=== PATIENT | male | born 1985 | race Caucasian/White ===

== ENCOUNTER → 2017-03-08 | Day surgery (SDC) | payer OTHER ==
[2017-02-23 11:49] VITALS: Ht 175.3 cm; Wt 79.5 kg
[~2017-03-08] VITALS: Ht 175.3 cm; Wt 79.5 kg
[~2017-03-08] MED LIST: APPL188C PO; ASTIN/15 NAE; ATROPINE SULFATE 0.1 MG/ML 5ML SYR IV PRN; BUPIVACAINE/EPINEPHRINE 0.25% 1:200,000 30 ML VIAL ONE; CEFAZOLIN 2000MG IV PUSH 10 ML IV SCH; CETITAB27 PO; DEXAMETHASONE SOD INJ 4 MG/ML VIAL ONE; EpHEDrine SULFATE INJ 50 MG/ML AMP IV PRN; EpINEphrine INJ 1MG/ML AMP 1 MG/ML AMP ONE; FENTANYL CITRATE INJ 50 MCG/1 ML 2 ML VIAL ONE; FLUT0.15 NAE; IBUP-1050 PO; KETO10TA PO; LACTATED RINGER'S 1000ML 1,000 ML IV SCH; LACTATED RINGER'S 1000ML 500 ML IV SCH; LIDOCAINE HCL 1% MPF 2 ML VIAL ONE; LIDOCAINE HCL 2% 2 ML VIAL (20MG/ML) ONE; MIDAZOLAM HCL 1 MG/ML 2ML VIAL ONE; MONT1TAB3 PO; MULT-506 PO; ONDANSETRON INJ 2 MG/ML 2 ML VIAL IV PRN; ONDANSETRON INJ 2 MG/ML 2 ML VIAL ONE; OXYC-57 PO; OXYCODONE/ACETAMINOPHEN 5-325 TAB PO PRN; PROPOFOL IV EMULSION 10 MG/ML 20 ML VIAL IV ONE; ROPIVACAINE 0.5% 5 MG/ML 30 ML VIAL ONE; SODIUM CHLORIDE 0.9% 1000ML 1,000 ML IV SCH
--- NOTE | 2017-03-08 10:13 | History & Physical Bridge - [place] ---
H&P Re-Evaluation Bridge Note: I have examined the patient, reviewed the History & Physical and in the interval since the performance of the History & Physical I have noted the following changes of clinical significance: No changes noted
--- NOTE | 2017-03-08 12:56 | [facility] Post Operative Brief Note ---
Immediate Operative Summary Operative Date Mar 08, 2017. Pre-Operative Diagnosis Right Shoulder Acromioclavicular Joint Arthritis Post-Operative Diagnosis Same Procedure(s) Performed Right Shoulder Arthroscopic Distal Clavicle Resection Surgeon Dr. Leal Bottle Tester Surgeon(s) Krystal Ledezma PA-C Estimated Blood Loss 5cc Findings as above Specimens None Complication(s) None Disposition Recovery Room / PACU
--- NOTE | 2017-03-08 13:02 | Discharge Instructions-SurgCtr ---
Discharge Instructions Date of Service Mar 08, 2017. Visit Reason for Visit: Right Shoulder Arthritis Acromioclavicular Jt Discharge Discharge Diagnosis / Problem: SAME ABOVE Discharge Goals Goal(s): Decrease discomfort, Improve function Medications Stopped Medications Name(s): all meds including ibuprofen stopped x 1 week. Restart Stopped Medication(s): MAY RESTART ALL EXCEPT IBUPROFEN MAY RESTART IBUPROFEN WHEN FINISHED WITH TORADOL PLEASE TAKE EVERY 8 HOURS WITH FOOD Activity Recommendations Activity Limitations: as noted below Lifting Limitations: gradually increase as tolerated Shower/Bathe: tomorrow Anesthesia . Post Anesthesia Instructions: If you have had General Anesthesia or IV Sedation: * Do not drive today. * Resume driving when surgeon permits. * Do not make important decisions or sign legal documents today. * Call surgeon for: 1. Temperature elevations greater than 101 degrees F. 2. Uncontrollable pain. 3. Excessive bleeding. 4. Persistent nausea and vomiting. 5. Medication intolerance (nausea, vomiting or rash). * For nausea and vomiting use only clear liquids such as: tea, soda, bouillon until nausea subsides, then gradually increase diet as tolerated. * If you have any concerns or questions, call your surgeon's office. If physician is unavailable and it is an emergency, call 911 or go to the nearest emergency room. . Instructions / Follow-Up Instructions / Follow-Up MEDICATIONS: * Resume previous medications unless instructed otherwise by your surgeon. * Always take pain medication on a full stomach or with food to avoid upset stomach. * Do not drink alcohol or drive while taking narcotics. * Ibuprofen or Tylenol may be taken if narcotic not needed. SPECIAL CARE INSTRUCTIONS: __ None _X_ Keep extremity elevated and iced x 48 hours; apply ice 20-30 minutes 8-10 times/day. May remove at night. _X Sling (WEAR FOR COMFORT ONLY) __24 hrs/day __ Remove at night __ Shoulder Immobilizer __ 24 hrs/day __ Remove at night _X_ Dressing __ Maintain until seen in office, may shower with plastic over site _X_ Remove dressings in 24-48 hours and then may shower _X_ Cover incisions with band-aids after showering __ Do not remove steri-strips Call physician if chills or temperature rises above 102 degrees or pain unrelieved by prescribed pain medications at . . Diet Recommendations Home Diet: no limitations Fluid Restriction: None Procedures Procedures Performed: Right Shoulder Arthroscopic Distal Clavicle Resection Pending Studies Studies pending at discharge: no Work Instructions Return To Work: after follow-up Lifting Limitations: none Medical Emergencies . Who to Call and When: Medical Emergencies: If at any time you feel your situation is an emergency, please call 911 immediately. . Non-Emergent Contact Non-Emergency issues call your: Primary Care Provider Call Non-Emergent contact if: you have a fever, temperature is above 101.5 . . "Provider Documentation" section prepared by Wale Ledezma. .
[2017-03-08] MEDS: HYDROmorphone INJ 1 MG/ML SYR IV PRN ×2 (13:20→13:28)
--- NOTE | 2017-03-08 13:57 | OPERATIVE REPORT ---
DATE OF OPERATION: 03/08/2017 PREOPERATIVE DIAGNOSES: Acromioclavicular joint arthritis and external impingement of the right shoulder. POSTOPERATIVE DIAGNOSES: Same. PROCEDURE: Right shoulder diagnostic arthroscopy with limited debridement, acromioplasty, and distal clavicle resection. SURGEON: Dr. Adair Leal. HIGH LIFT DRIVER: Iain Ledezma PA-C, whose assistance was necessary for positioning the arm and helping with instrumentation. ANESTHESIA: General with a right interscalene nerve block. COMPLICATIONS: None. CONDITION: Stable to PACU. 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 X-rays and clinical examination were diagnostic for bursitis, external impingement and AC joint arthritis. After failing conservative treatment, he elected to undergo arthroscopy. DESCRIPTION OF PROCEDURE: On 03/08/2017, he arrived at [facility] for the above procedure. He was seen in the preoperative holding area and the operative extremity was identified and signed. He was given a preoperative antibiotic and a right interscalene nerve block. He was taken back to the operating room, laid on the table in supine position and put under general anesthesia. He was then put into the beachchair position. The right shoulder was prepped and draped in sterile fashion. Time-out was done and the patient and operative extremity was properly identified. A scope was introduced in the posterior portal. Diagnostic arthroscopy showed no cartilage damage to the humeral head or the glenoid. There was a little fraying of the anterior labrum. The biceps tendon was intact with a normal size biceps lynn mechanism. The supraspinatus, infraspinatus, teres minor and subscapularis were all checked and intact. An anterior portal was made. A shaver was used to do a limited debridement of the anterior labrum. The scope was then put into the subacromial space. A lateral portal was made. A shaver was used to do a complete subacromial and subdeltoid bursectomy. The bursa was very red and inflamed. The coracoacromial ligament was teased off the undersurface of the acromion and a 5-0 elisha was used to complete an acromioplasty of a Bigliani type 2 acromion. A shaver was used to remove any excess debris and attention was turned to the distal clavicle. Through an anterior portal, a shaver and ablator were used to skeletonize the distal clavicle. A 5-0 elisha was then used to resect the distal 5 mm from the clavicle. Complete resection was checked under direct visualization. Multiple pictures were taken. A shaver was used to remove any excess debris. Final diagnostic arthroscopy showed no additional pathology. Arthroscopic instruments were removed from the shoulder. Portal sites were closed with 3-0 nylon. He was then placed in a soft dressing and a regular arm sling. He was then extubated, transferred to a litter and taken to the postanesthesia care unit in stable condition. He tolerated the procedure well. I attest to the content of the Intraoperative Record and any orders documented therein. Any exception s are noted below.
--- NOTE | 2017-03-08 14:15 | Anesthesia Progress Nt - [facility] ---
Anesthesia Post Op Note Date & Time Mar 08, 2017 at 14:15 Vital Signs Pain Intensity: 1 Vital Signs Past 12 Hours Date Time Temp Pulse Resp B/P (MAP) Pulse Ox O2 Delivery O2 Flow Rate FiO2 03/08/17 13:46 141/86 03/08/17 13:45 81 14 98 03/08/17 13:45 81 14 03/08/17 13:44 80 16 98 03/08/17 13:44 80 16 03/08/17 13:42 36.5 81 12 131/86 99 Room Air 03/08/17 13:41 131/86 03/08/17 13:39 87 13 97 03/08/17 13:39 86 13 03/08/17 13:36 144/90 03/08/17 13:34 90 17 97 03/08/17 13:34 90 17 03/08/17 13:33 88 12 99 03/08/17 13:33 85 12 03/08/17 13:31 152/97 03/08/17 13:28 78 8 100 03/08/17 13:28 77 8 03/08/17 13:26 142/85 03/08/17 13:23 72 12 03/08/17 13:23 72 12 100 03/08/17 13:22 83 16 03/08/17 13:22 83 16 100 03/08/17 13:21 119/75 03/08/17 13:17 78 15 100 03/08/17 13:17 79 15 03/08/17 13:16 123/78 03/08/17 13:12 75 14 03/08/17 13:12 76 14 100 03/08/17 13:11 136/74 03/08/17 13:07 83 16 100 03/08/17 13:07 82 16 03/08/17 13:06 131/79 03/08/17 13:03 135/87 03/08/17 13:02 36.6 86 16 135/87 100 Diffusion Mask 6 03/08/17 12:03 0 03/08/17 12:01 125/78 03/08/17 11:58 63 16 100 03/08/17 11:58 64 03/08/17 11:56 122/82 03/08/17 11:53 72 9 100 03/08/17 11:53 67 03/08/17 11:51 124/80 03/08/17 11:48 78 15 100 03/08/17 11:48 78 03/08/17 11:46 123/87 03/08/17 11:43 80 21 100 03/08/17 11:43 78 03/08/17 11:42 121/76 03/08/17 11:38 81 03/08/17 11:38 80 23 100 03/08/17 11:33 93 19 100 03/08/17 11:33 92 03/08/17 11:31 130/86 03/08/17 11:28 84 03/08/17 11:28 84 13 100 03/08/17 11:27 143/84 03/08/17 11:23 87 0 98 03/08/17 11:23 87 03/08/17 11:18 79 0 98 03/08/17 11:18 81 03/08/17 09:11 36.5 96 16 128/85 (99) 97 Room Air Notes Mental Status: alert / awake / arousable, participated in evaluation Pt Amnestic to Procedure: Yes Nausea / Vomiting: adequately controlled Pain: adequately controlled Airway Patency, RR, SpO2: stable & adequate BP & HR: stable & adequate Hydration State: stable & adequate Anesthetic Complications: no major complications apparent
[2017-03-08 14:34] VITALS: BP 116/69; PULSE 81; TEMP 36.4; O2SAT 99
== END | disposition home or self-care (01) ==
LOC: X.SURG 09:00
PROVIDERS: ATTEND Orthopaedic Surgery
DX: M19.011 Primary osteoarthritis, right shoulder (principal); M75.41 Impingement syndrome of right shoulder; K21.9 Gastro-esophageal reflux disease without esophagitis

== ENCOUNTER 2019-11-26 19:24 | Inpatient (IN) ==
[2019-11-26] MEDS ORDERED: MoRPHine SULFATE 4 MG/ML 1 ML CARP\\VIAL IV STA (19:49)
[2019-11-26] MEDS ORDERED: KETOROLAC TROMETHAMINE 15 MG/ML VIAL IV STA (19:51)
[2019-11-26 20:20] LABS: Basophils # (auto) 0.02 K/uL (0-0.2); Basophils % (auto) 0.3 %; Eosinophils # (auto) 0.09 K/uL (0-0.5); Eosinophils % (auto) 1.2 %; Hemoglobin 15.2 g/dL (14.0-18.0); Immature Granulocytes # (auto) 0.02 K/uL (0.00-0.02); Immature Granulocytes % (auto) 0.3 %; Lymphocytes # (auto) 2.18 K/uL (1.2-3.4); Lymphocytes % (auto) 28.5 %; Mean Corpuscular Hgb Conc 33.8 g/dL (32-36); Mean Corpuscular Volume 88.9 fL (80-100); Mean Platelet Volume 9.2 fL (7.4-10.4); Monocytes # (auto) 0.85 K/uL (0.11-0.59); Monocytes % (auto) 11.1 %; Neutrophils # (auto) 4.49 K/uL (1.4-6.5); Neutrophils % (auto) 58.6 %; Platelet Count 302 K/uL (130-400); RDW Coefficient of Variation 12.2 % (11.5-14.5); RDW Standard Deviation 39.3 fL (36.4-46.3); Red Blood Count 5.06 M/uL (4.7-6.1); White Blood Count 7.65 K/uL (4.8-10.8)
[2019-11-26 20:36] LABS: BUN Creatinine Ratio 17.4 (10-20); Blood Urea Nitrogen 19 mg/dl (7-18); Calcium 8.9 mg/dl (8.5-10.1); Carbon Dioxide 24 mmol/L (21-32); Chloride 109 mmol/L (98-107); Est GFR (African American) 99.6; Est GFR (Non-African American) 85.9; Glucose 99 mg/dl (70-99); Potassium 3.8 mmol/L (3.5-5.1); Sodium 140 mmol/L (136-145)
[2019-11-26] MEDS ORDERED: HYDROmorphone INJ 1 MG/ML SYRINGE IV STA ×2 (20:37→23:02)
--- NOTE | 2019-11-26 20:43 | Emergency Department Note ---
Impression & Plan Lumbar radiculopathy, Sciatica, Back pain ED Provider Note Provider: Sebastien Cabezas MD DATE OF SERVICE: 11/26/2019 CHIEF COMPLAINT: Back pain HISTORY OF PRESENT ILLNESS: Patient is a 34-year-old gentleman presenting here today complaining of severe lower back pain rating down the right leg. Patient states he had recent exacerbation of the past several weeks. Seen here several days ago. Utilize home medication including additional received from his primary doctor without improvement. Patient's pain is about it is weak and had to go to the ground. Unable to walk due to pain particular in his right leg. Denies abdominal pain or fever. Denies any significant trauma. Denies bladder or bowel dysfunction or saddle anesthesia. No prior history of back surgery. Patient has previously seen by neurosurgery at [facility] sometime ago. Has been seeing pain management recently in the outpatient setting with injection several weeks ago without significant improvement of symptoms. REVIEW OF SYSTEMS: A total of 10 review of systems was obtained and negative except as stated above in the HPI. PAST MEDICAL HISTORY: As noted above MEDICATIONS: Reviewed home medications with the patient and his SOCIAL HISTORY: Lives at home with his and children PHYSICAL EXAM: GENERAL: alert and oriented on stretcher appears uncomfortable Head: normocephalic and atraumatic EYES: No injection, discharge or icterus. ENT: Mucous membranes pink and moist. LUNGS: Airway patent. No retractions. Breath sounds clear HEART: Regular rate and rhythm. No chest wall tenderness ABDOMEN: Soft and non-tender, without guarding or rebound. BACK: Mild diffuse lumbar tenderness particularly of the right SI joint. SKIN: Acyanotic, warm, dry, without rashes EXTREMITIES: Without swelling, tenderness or deformity except pain with range of motion of the right lower extremity. No calf tenderness. NEUROLOGICAL: No focal deficits. No aphasia. No facial droop or slurred speech. Sensation to gross touch normal. Pain limits the ability to move the right lower extremity. Patient's hypertension was referred to the hospitalist HOSPITAL COURSE: 1938 Patient was first seen and H&P performed. 2034 reassessed the patient is still having significant pain. 2254 Patient reassessed and updated. Patient was still in some pain. Will contact the hospitalist. Patient's laboratory studies and imaging reviewed. Differential includes Musculoskeletal, disc herniation, fracture, metastatic disease, cord compression, discitis, sciatica, cauda equina, infection, aortic disease, renal colic, gastrointestinal, as well as other pathologies. IMPRESSION/MEDICAL DECISION MAKING: Patient presents with known back issues worsening now making it impossible for him to walk. On multiple medications at home including gabapentin and oxycodone as well as [id number]'s. Treated here with IV pain medication. Given the weakness likely secondary to significant pain in the right lower extremity MRI of the lumbar spine was completed. Disc disease noted without acute fracture or signs of cauda equina. I doubt an acute infectious cause given his lack of fevers or leukocytosis. Denies any loss of bladder or bowel function. Patient states given the need for pain medicine he does not feel comfortable going home. Will discuss with the hospitalist. DIAGNOSIS: Intractable back pain, sciatic radiculopathy DISPOSITION: Hospitalist will evaluate Patient was agreeable with this plan. Preliminary Findings Only See Final Report For Complete Findings MRI L SPINE : No acute fracture. Straightening of the normal lumbar lordosis with degenerative changes most pronounced at L4-5 and L5-S1. L4-5: Diffuse disc bulge with annular fissuring. Mild canal stenosis. Mild bilateral foraminal stenosis. L5-S1: Diffuse disc bulge causing moderate right and mild left foraminal stenosis. Potential herniated disc material inferior to the disc space medial to the exiting right S1 nerve root (image [id number]). This is the lowest slice and as such it is hard to say with certainty what this represents. There is mass-effect on the exiting nerve root. No epidural fluid collection. Normal appearance of the cord and cauda equina. Radiologist: Jan Arreaga MD Study ready at 22:34 and initial results transmitted at 22:45 Past Med/Surg History Medical History (Updated 11/26/19 @ 20:43 by Sebastien Cabezas M.D.) Chronic back pain Surgical History (Updated 11/25/19 @ 01:10 by Gracie Bell PA-C) No pertinent past surgical history Social History Smoking Status: Never smoker Preferred Language: Martiniquais Feels Safe at Home: Yes Allergies Allergies Allergy/AdvReac Type Severity Reaction Status Date / Time No Known Allergies Allergy Verified 11/26/19 22:48 Home Meds Home Medications Medication Instructions Recorded Confirmed cetirizine-pseudoephedrine 1 tab PO Q12H #0 02/23/17 11/06/19 [Zyrtec-D] fluticasone propionate [Flonase 1 spray INTRANASAL BID #0 02/23/17 11/06/19 Allergy Relief] ibuprofen 400 - 600 mg PO QID PRN #0 02/23/17 11/06/19 montelukast 10 mg PO QPM #0 02/23/17 11/06/19 multivitamin 1 tab PO DAILY #0 02/23/17 11/06/19 apple cider vinegar 300 mg PO BID 05/31/18 11/06/19 azelastine 1 spray INTRANASAL BID 11/06/19 11/06/19 cyclobenzaprine 10 mg PO TID PRN 11/06/19 11/06/19 Results & Data (ED) Vital Signs Vital Signs - 24 hr 11/26/19 19:27 11/26/19 20:43 11/26/19 22:36 Temperature 36.8 C Temperature Source Oral Pulse Rate 83 Pulse Rate [Left Finger] 80 80 Respiratory Rate 18 16 19 Respiratory Effort / Characteristics Non-Labored Non-Labored Spontaneous Respiratory Depth Normal Normal Blood Pressure 150/66 H Blood Pressure [Right Arm] 167/95 H 165/91 H Blood Pressure Mean 94 Blood Pressure Mean [Right Arm] 119 115 Pulse Oximetry 96 96 99 Oxygen Delivery Method Room Air Room Air Room Air Sepsis Recent Fever Within 48 Hours No Sepsis New/Unexplained Change in Mental Status No Sepsis Action Taken by Nursing No Action Required Laboratory Data Result diagrams: 11/26/19 20:07 11/26/19 20:07 Lab Results 11/26/19 11/26/19 Range/Units 20:07 20:07 WBC 7.65 (4.8-10.8) K/uL RBC 5.06 (4.7-6.1) M/uL Hgb 15.2 (14.0-18.0) g/dL Hct 45.0 (42-52) % MCV 88.9 (80-100) fL MCH 30.0 (25-34) pg MCHC 33.8 (32-36) g/dL RDW Std Deviation 39.3 (36.4-46.3) fL RDW Coeff of Get 12.2 (11.5-14.5) % Plt Count 302 (130-400) K/uL MPV 9.2 (7.4-10.4) fL Immature Gran % (Auto) 0.3 % Neut % (Auto) 58.6 % Lymph % (Auto) 28.5 % [place] % (Auto) 11.1 % Eos % (Auto) 1.2 % Baso % (Auto) 0.3 % Neut # (Auto) 4.49 (1.4-6.5) K/uL Lymph # (Auto) 2.18 (1.2-3.4) K/uL [place] # (Auto) 0.85 H (0.11-0.59) K/uL Eos # (Auto) 0.09 (0-0.5) K/uL Baso # (Auto) 0.02 (0-0.2) K/uL Immature Gran # (Auto) 0.02 (0.00-0.02) K/uL Sodium 140 (136-145) mmol/L Potassium 3.8 (3.5-5.1) mmol/L Chloride 109 H (98-107) mmol/L Carbon Dioxide 24 (21-32) mmol/L Anion Gap 7.0 (3-11) BUN 19 H (7-18) mg/dl Creatinine 1.10 (0.6-1.4) mg/dl Est Cr Clr Drug Dosing Not Reportable Est GFR ( Amer) 99.6 Est GFR (Non-Af Amer) 85.9 BUN/Creatinine Ratio 17.4 (10-20) Glucose 99 (70-99) mg/dl Calcium 8.9 (8.5-10.1) mg/dl Administered Medications Discontinued Medications Hydromorphone HCl (Hydromorphone Inj 1 Mg/Ml Syringe) 1 mg IV NOW STA Stop: 11/26/19 20:38 Last Admin: 11/26/19 20:40 Dose: 1 mg Documented by: [id number] Ketorolac Tromethamine (Ketorolac Tromethamine 15 Mg/Ml Vial) 15 mg IV NOW STA Stop: 11/26/19 19:52 Last Admin: 11/26/19 20:04 Dose: 15 mg Documented by: [id number] Morphine Sulfate (Morphine Sulfate 4 Mg/Ml 1 Ml Carp\Vial) 4 mg IV NOW STA Stop: 11/26/19 19:50 Last Admin: 11/26/19 20:05 Dose: 4 mg Documented by: [id number] Discharge Plan Visit Data Chief Complaint: Back Injury/Pain Stated Complaint: back pain ED Provider: Sebastien Cabezas Discharge Problem: Lumbar radiculopathy, Sciatica, Back pain Patient Disposition: Being Evaluated by Hospitalist Forms Stand Alone Forms: [facility] [place] Prescriptions Prescriptions: No Action multivitamin Tablet 1 tab PO DAILY Qty: 0 RF: 0 cetirizine-pseudoephedrine [Zyrtec-D] 5-120 mg Tablet Extended Release 12 Hr 1 tab PO Q12H Qty: 0 RF: 0 ibuprofen 200 mg Tablet 400 - 600 mg PO QID PRN (Reason: Pain) Qty: 0 RF: 0 montelukast 10 mg Tablet 10 mg PO QPM Qty: 0 RF: 0 fluticasone propionate [Flonase Allergy Relief] 50 mcg/actuation [place],Suspension 1 spray INTRANASAL BID Qty: 0 RF: 0 apple cider vinegar 300 mg Tablet 300 mg PO BID RF: 0 azelastine 137 mcg (0.1 %) aerosol,spray 1 spray INTRANASAL BID RF: 0 Referrals Referrals: Carlos Polo MD [Primary Care Provider] - Discharge Problem: Sciatica Qualifiers: Laterality: right Qualified Code(s): M54.31 - Sciatica, right side Back pain Qualifiers: Back pain location: low back pain Chronicity: acute Back pain laterality: right Sciatica presence: with sciatica Sciatica laterality: sciatica of right side Qualified Code(s): M54.41 - Lumbago with sciatica, right side
[2019-11-27] MEDS ORDERED: DEXAMETHASONE SOD INJ 10 MG/ML VIAL IV STA (01:55)
[2019-11-27] MEDS ORDERED: HYDROmorphone INJ 0.5 MG/0.5 ML SYR IV PRN (01:55)
[2019-11-27] MEDS ORDERED: ONDANSETRON INJ 2 MG/ML 2 ML VIAL IV PRN (01:55)
[2019-11-27] MEDS ORDERED: POLYETHYLENE (MIRALAX) 17 GM PACK PO PRN (01:55)
[2019-11-27] MEDS ORDERED: DEXAMETHASONE SOD PHOSPHATE 10 MG in SYRINGE 0 ML IV ONE (02:30)
--- NOTE | 2019-11-27 02:38 | History and Physical Report ---
DATE OF ADMISSION: 11/27/2019 CHIEF COMPLAINT: Severe back pain. HISTORY OF PRESENT ILLNESS: This is a 34-year-old male with past medical history significant for seasonal allergic rhinitis, mixed rhinitis, degenerative disc disease, chronic low back pain, cystic fibrosis carrier, who comes with severe back pain. The patient says he has back pain for last 10 years. A couple of weeks ago, he saw Pain Management and was given the pain shots, which made the pain worse and he was in the ER on 11/06/2019 and he was given Toradol, Decadron, and morphine. His symptoms improved and was discharged.But yesterday in the evening he again had severe pain, he could not ambulate because of severe pain and the pain was shooting from the right lower back to the right leg and he could not move the right leg because of the pain. Denies any incontinence of urine or stool. No loss of sensations. Denies any other fever, chills. Still has significant pain. Received several doses of Dilaudid in the ER. MRI scan was done, it showed probable disc bulge, potentially herniated disc medial to the exiting right S1 nerve root. No epidural fluid collection. Normal appearance of the cord and cauda equina. The patient denies any chest pain, no shortness of breath, no nausea, no abdominal pain. Normal bowel and bladder movements. No rash seen. No headache, no blurred vision, no earache, no runny nose, no sore throat, no cough. ALLERGIES: No known drug allergies. PAST MEDICAL HISTORY: As mentioned above. PAST SURGICAL HISTORY: Arthroscopy of right knee joint, repair of the deviated septum, injection of lumbosacral joints, removal of turbinate bones bilateral, sinus surgery. MEDICATIONS: The patient is on gabapentin 300 mg p.o. t.i.d., tramadol 50 mg p.o. p.r.n., Flexeril 10 mg p.o. t.i.d., Flonase 2 sprays into each nostril b.i.d., Singulair 10 mg p.o. daily, apple cider vinegar 300 mg b.i.d., [employer] nasal spray 2 sprays into each nostril daily p.r.n. FAMILY HISTORY: Significant for maternal grandfather with diabetes, father has hyperlipidemia, paternal grandfather has hyperlipidemia. SOCIAL HISTORY: , lives with his and kids. No smoking. Alcohol, a couple of beers a week. No drug use. REVIEW OF SYSTEMS: As per HPI. Rest of the review of systems negative. PHYSICAL EXAMINATION: GENERAL: The patient is of moderate build, not in acute distress. VITAL SIGNS: Temperature 36.8, pulse 71, respiratory rate 20, blood pressure 148/93, oxygen 99% on room air. HEENT: Pupils equal, round, reactive to light. NECK: No JVD, no neck masses. CARDIOVASCULAR: S1, S2 heard, regular rate and rhythm, no murmur, no gallop. RESPIRATORY SYSTEM: Normal AP diameter. No accessory muscle use. No wheezing, no crackles. ABDOMEN: Soft, bowel sounds present, nontender. No distention. CENTRAL NERVOUS SYSTEM: Cranial nerves II-XII grossly intact. Nonfocal. EXTREMITIES: No edema, no erythema. MUSCULOSKELETAL: Straight leg raise test positive on the right leg. painful movements of the right leg.No loss of sensation. LABORATORY DATA: WBC 7.6, hemoglobin 15.2, hematocrit 45, platelets 302. Sodium 140, potassium 3.8, chloride 109, bicarbonate 24, BUN 19, creatinine 1.1, serum glucose 99, calcium 8.9. IMAGING DATA: Lumbar spine MRI preliminary report shows L5-S1 diffuse disc bulge causing moderate right and mid left foraminal stenosis, potential herniated disc material inferior to disc space medial to the exiting right S1 nerve root.Possible mass effect on nerve root. No epidural fluid collection. Normal appearance of the cord and cauda equina. ASSESSMENT AND PLAN: This is a 34-year-old male with severe back pain. 1. Severe intractable back pain. He has chronic back pain. Received shots by the Pain Management, not helping. Yesterday night, he had a flare-up again. MRI scan is showing normal cord and cauda equina, but showing moderate disc bulge causing moderate right and mild left foraminal stenosis at the L5-S1 and potential herniated disc material inferior to disc space medial to the exiting right S1 nerve root and possible mass effect . Will follow final MRI report. We will give a dose of Decadron and control the pain with IV Dilaudid p.r.n. We will keep him n.p.o. and consult ortho in a.m. for further recommendations. PT and OT when stable. Notified Ortho. 2. Allergic rhinitis. Continue his home medication. 3. Deep venous thrombosis prophylaxis, sequential compression devices for now. DISPOSITION: Observe in medical floor. Expect to discharge home and follow with family doctor. Level 1 full code. MTDD
[2019-11-27] MEDS: HYDROmorphone INJ 1 MG/ML SYRINGE IV PRN ×7 (04:20→23:46)
[2019-11-27 07:14] LABS: Basophils # (auto) 0.01 K/uL (0-0.2); Basophils % (auto) 0.1 %; Eosinophils # (auto) 0.01 K/uL (0-0.5); Eosinophils % (auto) 0.1 %; Hematocrit (blood only) 44.4 % (42-52); Hemoglobin 15.4 g/dL (14.0-18.0); Lymphocytes # (auto) 0.71 K/uL (1.2-3.4); Lymphocytes % (auto) 7.8 %; Mean Corpuscular Hemoglobin 30.6 pg (25-34); Mean Corpuscular Hgb Conc 34.7 g/dL (32-36); Mean Corpuscular Volume 88.1 fL (80-100); Mean Platelet Volume 9.2 fL (7.4-10.4); Monocytes # (auto) 0.08 K/uL (0.11-0.59); Monocytes % (auto) 0.9 %; Neutrophils # (auto) 8.34 K/uL (1.4-6.5); Neutrophils % (auto) 91.1 %; Platelet Count 255 K/uL (130-400); RDW Coefficient of Variation 12.1 % (11.5-14.5); RDW Standard Deviation 38.5 fL (36.4-46.3); Red Blood Count 5.04 M/uL (4.7-6.1); White Blood Count 9.15 K/uL (4.8-10.8)
[2019-11-27 07:38] LABS: BUN Creatinine Ratio 20.7 (10-20); Calcium 9.1 mg/dl (8.5-10.1); Creatinine Clr Calc Pharmacy 104.2 ml/min; Est GFR (African American) 114.5; Est GFR (Non-African American) 98.8; Magnesium 2.2 mg/dl (1.8-2.4)
[2019-11-27] MEDS: FLUTICASONE PROPIONATE NA SPR 16 GM BTL SCH ×2 (07:45→20:51)
[2019-11-27] MEDS: MULTIVITAMIN TAB PO SCH (07:45)
--- NOTE | 2019-11-27 08:29 | Magnetic Resonance Report ---
MRI OF THE LUMBAR SPINE WITHOUT CONTRAST CLINICAL HISTORY: back pain down RLE, weakness COMPARISON STUDY: Lumbar spine radiographs May 31, 2018. TECHNIQUE: Utilizing a 1.5 Jeannette magnet and dedicated coil, multiplanar, multiecho imaging of the [facility] spine was performed without IV contrast. FINDINGS: For purposes of numbering on this exam, the L5-S1 disc space is assigned to axial image 23 of 25. Ali gnment is anatomic. Vertebral body heights are maintained. There is no suspicious marrow replacement. Hemangioma within the L5 vertebral bodies is noted. The conus terminates at the upper L2 level. Para vertebral soft tissues are unremarkable. L1-2: The central canal and neural foramen are patent. L2-3: The central canal and neural foramen are patent. L3-4: The central canal and neural foramen are patent. L4-5: There is mild disc bulge with ligamentous hypertrophy and facet arthrosis. There is mild centra l canal stenosis. There is mild bilateral neural foraminal stenosis. L5-S1: There is mild disc bulge. There is a superimposed right paracentral disc protrusion that measu res approximately 1 x 0.8 cm. This has mass effect upon the right S1 nerve root. There is moderate na rrowing of the right neural foramen and mild narrowing of the left neural foramen. There is mild cent ral canal narrowing. IMPRESSION: 1. Disc bulge with superimposed right central disc protrusion at L5-S1 that has mass effect upon the right S1 nerve root. Findings could be correlated with right S1 radiculopathy. 2. Mild disc bulge at L4-L5. Mild narrowing of the central canal this level. 3. No lumbar spine fracture. ACT 112: Negative or not required by law. Electronically signed by: Delon Gomes M.D. 11/27/2019 8:28 AM
--- NOTE | 2019-11-27 08:34 | Orthopedic Consultation ---
Date of Consultation November 27, 2019 Assessment & Plan (1) Lumbar radiculopathy: This time the patient is evidence of a herniated free fragment at L5-S1 on the right with caudal migration. It is sitting in the axillary region of the nerve roots. The significant displacement of the tickly S1 nerve root. This is clearly accounting for symptom complex. He is failed extensive course of nonoperative care is any significant distress with neurologic client and recommending lumbar laminotomy with discectomy at L5-S1 the right. Risk benefits pros cons and alternatives were outlined in detail. At this time we will make him n.p.o. after midnight plan for surgery tomorrow. 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 He presents with worsening back and right leg pain. Yesterday got the point he was unable to ambulate and required assistance to his vehicle and to the ER. He has been in the ER twice this week secondary to pain. He has had 1 epidural injection providing little to no relief. The symptoms of all the right buttock posterior thigh extending in the calf and heel. He notes weakness affecting the right lower extremity as well as limitations with ambulation. Allergies Allergy/AdvReac Type Severity Reaction Status Date / Time No Known Allergies Allergy Verified 11/26/19 22:48 Home Medications Home Medications Medication Instructions Recorded Confirmed Type cetirizine-pseudoephedrine 1 tab PO Q12H #0 02/23/17 11/26/19 History [Zyrtec-D] fluticasone propionate [Flonase 1 spray INTRANASAL BID #0 02/23/17 11/26/19 History Allergy Relief] ibuprofen 400 - 600 mg PO QID PRN #0 02/23/17 11/26/19 History montelukast 10 mg PO QPM #0 02/23/17 11/26/19 History multivitamin 1 tab PO DAILY #0 02/23/17 11/26/19 History apple cider vinegar 300 mg PO BID 05/31/18 11/26/19 History azelastine 1 spray INTRANASAL BID 11/06/19 11/26/19 History Patient History Medical History (Updated 11/26/19 @ 20:43 by Sebastien Cabezas M.D.) Chronic back pain Surgical History (Updated 11/25/19 @ 01:10 by Gracie Bell PA-C) No pertinent past surgical history Social History Smoking Status: Never smoker Second Hand Exposure: No; Do You Dip or Chew Tobacco: No; Tobacco Cessation Education Requested by Patient: No Hx Alcohol Use: Yes Alcohol type: beer Hx Substance Use: No Preferred Language: [place] Islander Communication Ability: Effective Call Center Support Consultant Required: No Beliefs That Will Affect Care: None Current Living Situation: Spouse Other Information That Helps Us Care for You: No Feels Safe at Home: Yes Safety Concerns: Feels Safe At This Time Physical Exam Physical Exam: Patient is obvious distress. He demonstrates significant tension signs with straight leg raising on the right as well as a positive Lasegue's maneuver. He has weakness with plantar flexion on the right. He is a 5 or 5 strength detailed testing on the left. Results & Data ([facility]) Vital Signs (Past 12 Hours) Vital Signs Temp Pulse Pulse Pulse Resp BP BP 11/27/19 07:22 36.6 C 95 H 17 147/94 H 11/27/19 03:38 63 11/27/19 01:45 36.5 C 68 19 162/99 H 11/27/19 01:36 70 18 149/84 H 11/27/19 00:00 71 20 11/26/19 22:36 80 19 11/26/19 20:43 80 16 BP Pulse Ox Pulse Ox 11/27/19 07:22 96 11/27/19 03:38 138/81 11/27/19 01:45 98 98 11/27/19 01:36 99 11/27/19 00:00 148/93 H 99 11/26/19 22:36 165/91 H 99 11/26/19 20:43 167/95 H 96
[2019-11-27] MEDS: CETIRIZINE HCL 10 MG TABLET PO SCH ×2 (08:52→19:10)
[2019-11-27] MEDS: LORazepam 1 MG TAB PO PRN ×2 (10:59→17:17)
--- NOTE | 2019-11-27 13:13 | Hospitalist Progress Note ---
Date of Service November 27, 2019 Assessment & Plan (1) Back pain: (2) Lumbar radiculopathy: Chronic back pain with lumbar radiculopathy Ambulatory dysfunction from this MRI showing Disc bulge with superimposed right central disc protrusion at L5-S1 that has mass effect upon the right S1 nerve root Ortho on board Plan for Rt L5-S2 laminectomy tomorrow NPO after midnight PT/OT post op Pain control (3) Allergic rhinitis: Continue home meds (4) DVT prophylaxis: SCD for now Planned for surgery tomorrow Admission and Anticipated Discharge Date Admission Date: November 27, 2019 Subjective Patient seen and examined Reports low back pain radiating to right leg Also reports right leg weakness Denied any numbness or paresthesia Denied any saddle anaesthesia, numbness, urinary or fecal incontinence Denied any other complaints on ROS Physical Exam Constitutional: well developed; no acute distress Eyes: PERRL, conjunctivae normal, anicteric sclerae ENMT: external ear and nose normal, oropharynx normal Respiratory: normal respiratory effort, lungs clear to auscultation Cardiovascular: RRR, no murmur, no edema Gastrointestinal (Abdomen): normal bowel sounds, soft, nontender, no hepatosplenomegaly Musculoskeletal: Power is 4/5 in RLE and 5/5 in other extremities. Sensation intact Neurologic: PERRL, EOMI, accommodation nl, no face palsy, no dysarthria Psychiatric: A+Ox3, euthymic affect Results & Data Results & Data ([facility]) Vital Signs (Past 12 Hours) Vital Signs Temp Pulse Pulse Pulse Resp BP BP 11/27/19 07:22 36.6 C 95 H 17 147/94 H 11/27/19 03:38 63 11/27/19 01:45 36.5 C 68 19 162/99 H 11/27/19 01:36 70 18 149/84 H BP Pulse Ox Pulse Ox 11/27/19 07:22 96 11/27/19 03:38 138/81 11/27/19 01:45 98 98 11/27/19 01:36 99 Laboratory Results Laboratory Results - last 24 hr 11/26/19 11/26/19 11/27/19 20:07 20:07 06:56 WBC 7.65 9.15 RBC 5.06 5.04 Hgb 15.2 15.4 Hct 45.0 44.4 MCV 88.9 88.1 MCH 30.0 30.6 MCHC 33.8 34.7 RDW Std Deviation 39.3 38.5 RDW Coeff of Get 12.2 12.1 Plt Count 302 255 MPV 9.2 9.2 Immature Gran % (Auto) 0.3 0.0 Neut % (Auto) 58.6 91.1 Lymph % (Auto) 28.5 7.8 [place] % (Auto) 11.1 0.9 Eos % (Auto) 1.2 0.1 Baso % (Auto) 0.3 0.1 Neut # (Auto) 4.49 8.34 H Lymph # (Auto) 2.18 0.71 L [place] # (Auto) 0.85 H 0.08 L Eos # (Auto) 0.09 0.01 Baso # (Auto) 0.02 0.01 Immature Gran # (Auto) 0.02 0.00 Sodium 140 Potassium 3.8 Chloride 109 H Carbon Dioxide 24 Anion Gap 7.0 BUN 19 H Creatinine 1.10 Est Cr Clr Drug Dosing Not Reportable Est GFR ( Amer) 99.6 Est GFR (Non-Af Amer) 85.9 BUN/Creatinine Ratio 17.4 Glucose 99 Calcium 8.9 Magnesium COVID-19 Eval Order SARS-CoV-2, RNA, NAAT 11/27/19 11/27/19 11/27/19 06:56 08:53 08:53 WBC RBC Hgb Hct MCV MCH MCHC RDW Std Deviation RDW Coeff of Get Plt Count MPV Immature Gran % (Auto) Neut % (Auto) Lymph % (Auto) [place] % (Auto) Eos % (Auto) Baso % (Auto) Neut # (Auto) Lymph # (Auto) [place] # (Auto) Eos # (Auto) Baso # (Auto) Immature Gran # (Auto) Sodium 137 Potassium 4.0 Chloride 106 Carbon Dioxide 24 Anion Gap 7.0 BUN 20 H Creatinine 0.98 Est Cr Clr Drug Dosing 104.2 Est GFR ( Amer) 114.5 Est GFR (Non-Af Amer) 98.8 BUN/Creatinine Ratio 20.7 H Glucose 105 H Calcium 9.1 Magnesium 2.2 COVID-19 Eval Order Covid19 [facility] SARS-CoV-2, RNA, NAAT NEGATIVE (1) Back pain Back pain laterality: right Back pain location: low back pain Chronicity: acute Sciatica laterality: sciatica of right side Sciatica presence: with sciatica Qualified Code(s): M54.41 - Lumbago with sciatica, right side
[2019-11-27] MEDS: SIMETHICONE 80 MG CHEW PO PRN (19:51)
[2019-11-27] MEDS: ACETAMINOPHEN 325 MG TAB PO PRN (19:54)
[2019-11-27] MEDS: MONTELUKAST SODIUM 10 MG TABLET PO SCH (20:51)
[2019-11-28] MEDS: HYDROmorphone INJ 1 MG/ML SYRINGE IV PRN ×5 (03:56→19:12)
[2019-11-28 06:02] LABS: Hematocrit (blood only) 45.9 % (42-52); Hemoglobin 15.9 g/dL (14.0-18.0); Mean Corpuscular Hemoglobin 30.7 pg (25-34); Mean Corpuscular Hgb Conc 34.6 g/dL (32-36); Mean Corpuscular Volume 88.6 fL (80-100); Mean Platelet Volume 9.3 fL (7.4-10.4); Platelet Count 280 K/uL (130-400); RDW Coefficient of Variation 12.2 % (11.5-14.5); RDW Standard Deviation 39.2 fL (36.4-46.3); Red Blood Count 5.18 M/uL (4.7-6.1)
[2019-11-28 06:32] LABS: Creatinine Clr Calc Pharmacy 103.2 ml/min; Est GFR (African American) 113.1; Est GFR (Non-African American) 97.6; Potassium 4.1 mmol/L (3.5-5.1)
[2019-11-28 06:33] LABS: BUN Creatinine Ratio 21.3 (10-20)
[2019-11-28] MEDS ORDERED: bisacodyL 10 MG SUPP PR STA (06:38)
--- NOTE | 2019-11-28 07:26 | History & Physical Bridge Note ---
Date of Service November 28, 2019 History & Physical Bridge Note I have examined the patient, reviewed the History & Physical and in the interval since the performance of the History & Physical I have noted the following changes of clinical significance: no changes noted
[2019-11-28] MEDS: CETIRIZINE HCL 10 MG TABLET PO SCH ×2 (07:41→20:46)
[2019-11-28] MEDS: MULTIVITAMIN TAB PO SCH (07:42)
[2019-11-28] MEDS: FLUTICASONE PROPIONATE NA SPR 16 GM BTL SCH ×2 (07:42→20:46)
--- NOTE | 2019-11-28 08:07 | Hospitalist Progress Note ---
Date of Service November 28, 2019 Assessment & Plan (1) Back pain: (2) Lumbar radiculopathy: Chronic back pain with lumbar radiculopathy Ambulatory dysfunction from this MRI showing Disc bulge with superimposed right central disc protrusion at L5-S1 that has mass effect upon the right S1 nerve root Ortho on board Plan for Rt L5-S2 laminectomy today PT/OT post op BP was elevated yesterday. Likely from pain. Optimize pain control and monitor (3) Allergic rhinitis: Continue home meds (4) DVT prophylaxis: SCD for now Planned for surgery this morning Updated patient and who was at bedside of the plan Admission and Anticipated Discharge Date Admission Date: November 27, 2019 Subjective Patient seen and examined this AM Reports low back pain radiating to RLE, RLE weakness No paraesthesia/numbness Reports ambulatory dysfunction due to this but able to go to bathroom using the walker. Denied other complaints Physical Exam Constitutional: well developed; no acute distress Eyes: PERRL, conjunctivae normal, anicteric sclerae ENMT: external ear and nose normal, oropharynx normal Respiratory: normal respiratory effort, lungs clear to auscultation Cardiovascular: RRR, no murmur, no edema Gastrointestinal (Abdomen): normal bowel sounds, soft, nontender, no hepatosplenomegaly Musculoskeletal: Power is 4/5 in RLE and 5/5 in other extremities. Sensation intact Neurologic: PERRL, EOMI, accommodation nl, no face palsy, no dysarthria Psychiatric: A+Ox3, euthymic affect Results & Data Results & Data ([facility]) Vital Signs (Past 12 Hours) Vital Signs Temp Pulse Pulse Resp BP BP Pulse Ox 11/28/19 07:36 36.9 C 79 18 130/80 99 11/28/19 00:05 11/27/19 23:38 36.7 C 89 16 157/87 H 98 Pulse Ox 11/28/19 07:36 11/28/19 00:05 98 11/27/19 23:38 Laboratory Results Laboratory Results - last 24 hr 11/28/19 11/28/19 05:47 05:47 WBC 9.20 RBC 5.18 Hgb 15.9 Hct 45.9 MCV 88.6 MCH 30.7 MCHC 34.6 RDW Std Deviation 39.2 RDW Coeff of Get 12.2 Plt Count 280 MPV 9.3 Sodium 139 Potassium 4.1 Chloride 108 H Carbon Dioxide 23 Anion Gap 8.0 BUN 21 H Creatinine 0.99 Est Cr Clr Drug Dosing 103.2 Est GFR ( Amer) 113.1 Est GFR (Non-Af Amer) 97.6 BUN/Creatinine Ratio 21.3 H Glucose 93 Calcium 9.0 (1) Back pain Back pain laterality: right Back pain location: low back pain Chronicity: acute Sciatica laterality: sciatica of right side Sciatica presence: with sciatica Qualified Code(s): M54.41 - Lumbago with sciatica, right side
[2019-11-28] MEDS: LORazepam 1 MG TAB PO PRN (08:58)
[2019-11-28] MEDS: ACETAMINOPHEN 325 MG TAB PO PRN (09:58)
[2019-11-28] MEDS: SIMETHICONE 80 MG CHEW PO PRN (10:51)
[2019-11-28] MEDS ORDERED: DEXAMETHASONE SOD INJ 4 MG/ML VIAL ONE (15:37)
[2019-11-28] MEDS ORDERED: ONDANSETRON INJ 2 MG/ML 2 ML VIAL ONE (15:37)
[2019-11-28] MEDS ORDERED: PROPOFOL IV EMULSION 10 MG/ML 20 ML VIAL IV ONE (15:37)
[2019-11-28] MEDS ORDERED: MIDAZOLAM HCL 1 MG/ML 2ML VIAL ONE (15:37)
[2019-11-28] MEDS ORDERED: ROCURONIUM BROMIDE 10 MG/ML 5 ML VIAL IV ONE (15:37)
[2019-11-28] MEDS ORDERED: GLYCOPYRROLATE 0.2 MG/ML VIAL ONE (15:37)
[2019-11-28] MEDS ORDERED: LIDOCAINE HCL 2% 2 ML VIAL/AMP(20MG/ML) INFIL ONE (15:37)
[2019-11-28] MEDS ORDERED: SODIUM CHLORIDE 0.9% INJ 10 ML VIAL ONE (15:37)
[2019-11-28] MEDS ORDERED: fentaNYL citrate 100 MCG/2 ML VIAL ONE (15:37)
[2019-11-28] MEDS ORDERED: HYDROmorphone INJ 2 MG/ML SYR/VIAL ONE (15:37)
[2019-11-28] MEDS ORDERED: NEOSTIGMINE METHYLSULFATE 1 MG/ML 10ML VIAL ONE (15:37)
[2019-11-28] MEDS ORDERED: LARYING-O-JET KIT (LTA) ONE (15:53)
[2019-11-28] MEDS ORDERED: EPINEPHrine INJ 1 MG/ML AMP ONE (15:54)
[2019-11-28] MEDS ORDERED: BACITRACIN INJ 50,000 UNIT VIAL ONE (15:54)
[2019-11-28] MEDS ORDERED: BUPIVACAINE 0.5 % 5 MG/1 ML MPF 30ML VIAL ONE (15:54)
--- NOTE | 2019-11-28 16:05 | Anesthesiology Consultation ---
Date of Service November 28, 2019 Covid 19 negative on 11/27/19. Assessment & Plan (1) Encounter for pre-operative examination: Chart Review Chart Review: Acceptable Risk for Surgery Consults Requested none ASA ASA2 Proposed Anesthesia Anesthesia Type: General Risk / Benefits Reviewed With: PT / POA / Parent / Guardian, Accepts Plan and Informed Consent Obtained History Surgery Operation Date: 11/28/19 07:00 Proposed Procedures p Right L5-S2 Laminectomy - Elías Thompson DO Height/Weight Height: 5 ft 9 in Weight: 82.9 kg Allergies Allergy/AdvReac Type Severity Reaction Status Date / Time No Known Allergies Allergy Verified 11/26/19 22:48 Medications Home Medications Medication Instructions Recorded Confirmed Last Taken cetirizine-pseudoephedrine 1 tab PO Q12H #0 02/23/17 11/26/19 05/31/18 [Zyrtec-D] fluticasone propionate [Flonase 1 spray INTRANASAL BID #0 02/23/17 11/26/19 05/31/18 Allergy Relief] ibuprofen 400 - 600 mg PO QID PRN #0 02/23/17 11/26/19 Unknown montelukast 10 mg PO QPM #0 02/23/17 11/26/19 05/30/18 multivitamin 1 tab PO DAILY #0 02/23/17 11/26/19 05/31/18 apple cider vinegar 300 mg PO BID 05/31/18 11/26/19 05/31/18 azelastine 1 spray INTRANASAL BID 11/06/19 11/26/19 Unknown Active Medications Generic Name Dose Route Start Last Admin Trade Name Missaelq PRN Reason Stop Dose Admin Acetaminophen 650 mg 11/27/19 01:55 11/28/19 09:58 Acetaminophen 325 Mg Tab PO 12/27/19 01:54 650 mg Q4H PRN Administration pain/fever Cetirizine HCl 10 mg 11/27/19 08:00 11/28/19 07:41 Cetirizine Hcl 10 Mg Tablet PO 12/27/19 07:59 10 mg Q12H CHANTELL Administration Fluticasone Propionate 1 sprays 11/27/19 09:00 11/28/19 07:42 Fluticasone Propionate Na Spr 16 Gm Btl NA 12/27/19 08:59 1 sprays BID CHANTELL Administration Hydromorphone HCl 1 mg 11/27/19 04:11 11/28/19 14:00 Hydromorphone Inj 1 Mg/Ml Syringe IV 12/11/19 04:10 1 mg Q3H PRN Administration Pain Lorazepam 1 mg 11/27/19 08:35 11/28/19 08:58 Lorazepam 1 Mg Tab PO 12/27/19 08:34 1 mg Q6 PRN Administration spasms Miscellaneous 1 ea 11/27/19 08:00 11/28/19 07:42 Azelastine- Order Awaiting Action N/A 12/27/19 07:59 Not Given QS CHANTELL Montelukast Sodium 10 mg 11/27/19 21:00 11/27/19 20:51 Montelukast Sodium 10 Mg Tablet PO 12/27/19 20:59 10 mg QPM CHANTELL Administration Multivitamins 1 tab 11/27/19 09:00 11/28/19 07:42 Multivitamin Tab PO 12/27/19 08:59 1 tab DAILY CHANTELL Administration Simethicone 80 mg 11/27/19 18:53 11/28/19 10:51 Simethicone 80 Mg Chew PO 12/27/19 18:52 80 mg Q6H PRN Administration Dyspepsia NPO Date Last Intake of Fluids: 11/27/19 Time Last Intake of Fluids: 23:59 Last Intake of Fluids Comment: sips of water today Date Last Intake of Solids: 11/27/19 Time Last Intake of Solids: 23:59 Past Medical History Medical History Chronic back pain Chronic sinusitis Past Surgical History Surgical History No pertinent past surgical history Social History Smoking Status: Never smoker Do You Dip or Chew Tobacco: No Hx Alcohol Use: Yes Alcohol type: beer alcohol intake frequency: a few times a week Hx Substance Use: No Physical Exam Vital Signs Last Vital Signs Temp 36.5 C 11/28/19 15:13 Pulse 76 11/28/19 15:13 Resp 20 11/28/19 15:13 BP 150/90 H 11/28/19 15:13 Pulse Ox 99 11/28/19 15:13 Testing Laboratory Results 11/28/19 05:47 11/28/19 05:47
[2019-11-28] MEDS ORDERED: fentaNYL citrate 100 MCG/2 ML VIAL IV PRN (16:08)
[2019-11-28] MEDS ORDERED: ATROPINE SULFATE 0.1 MG/ML 10ML SYR IV PRN (16:08)
[2019-11-28] MEDS ORDERED: PHENYLEPHRINE 100MCG/ML 5ML SYR IV PRN (16:08)
[2019-11-28] MEDS ORDERED: LABETALOL HCL IV 5 MG/ML 20ML IV PRN (16:08)
[2019-11-28] MEDS ORDERED: ePHEDrine sulfate 50 MG/ML AMP IV PRN (16:08)
[2019-11-28] MEDS ORDERED: HYDROmorphone INJ 1 MG/ML SYRINGE IV PRN (16:08)
[2019-11-28] MEDS ORDERED: MEPERIDINE HCL 25 MG/ML CARP/VIAL IV PRN (16:08)
[2019-11-28] MEDS ORDERED: ONDANSETRON INJ 2 MG/ML 2 ML VIAL IV PRN ×2 (16:08→18:13)
[2019-11-28] MEDS ORDERED: LABETALOL HCL IV 5 MG/ML 20ML IV ONE (16:31)
[2019-11-28] MEDS ORDERED: ceFAZolin 2000MG 2,000 MG/15 ML SYR IV ONE (16:48)
[2019-11-28] MEDS ORDERED: FLOSEAL HEMOSTATIC MATRIX 10ML TOP ONE (16:53)
--- NOTE | 2019-11-28 16:58 | Operative Report ---
Post Operative Report Pre & Post Diagnosis Operation Date: 11/28/19 07:00 Pre-Op Diagnosis: Lumbar radiculopathy I identified the patient and participated in the time-out.: Yes Procedure Operation Date: 11/28/19 07:00 Actual Procedures Lumbar laminotomy with excision of herniated free fragment L5-S1 on the right Surgeon Elías Thompson DO Rehabilitation Tech Jose Manuel Hillman Estimated Blood Loss 20 Findings Consistent with Post-Op Diagnosis Specimens None Indications This is a 34-year-old male presents with severe radiculopathy secondary to herniated nucleus pulposus L5-S1 on the right. Subsequently is here for the above-mentioned procedure. Description of Procedure Patient was met with identified informed consent obtained. Patient was then taken to the operative suite underwent an patient placed in a prone position the Jerel table on top of the Winston frame. All bony prominences well-padded eyes inspected to ensure no external pressure placed upon them. This point the lumbar spine was prepped and draped in a sterile fashion. With assistance of fluoroscopy identified the L5-S1 displacement small midline incision was created overlying his region. Sharp dissection with assistance of Bovie cautery was performed down to and exposing the interlaminar space at L5-S1 on the right. A self-retaining retractor was placed. A small laminotomy was created and excised the lateral portion of the ligamentum flavum to expose markedly compressed traversing S1 nerve root. Massive amounts of free fragment were noted in the axillary region. It was removed in its entirety. There was explored several times to ensure all fragments were addressed. Then copiously irrigated and closed with 1 Vicryl in a fashion of 2-0 Vicryl for subcutaneous closure. 4 Monocryl for final skin closure Steri-Strips and sterile dressing placed. Patient was then awakened taken PACU stable condition. Please note Jose Manuel sonny was present at the entire procedure involved patient positioning complex portions of the surgery and final skin closure. I attest to the content of the Intraoperative Record and any orders documented therein. Any exceptions are noted below.
--- NOTE | 2019-11-28 17:29 | Anesthesiology Progress Note ---
Date of Service November 28, 2019 Anesthesia Post Procedure Vital Signs Vital Signs: Temp Pulse Pulse Pulse Resp BP BP 11/28/19 17:25 70 14 134/78 11/28/19 17:18 36.6 C 70 14 135/75 11/28/19 15:13 36.5 C 76 20 150/90 H 11/28/19 14:56 36.3 C L 74 16 150/93 H 11/28/19 07:36 36.9 C 79 18 130/80 11/28/19 00:05 11/27/19 23:38 36.7 C 89 16 157/87 H Pulse Ox Pulse Ox 11/28/19 17:25 97 11/28/19 17:18 97 11/28/19 15:13 99 11/28/19 14:56 96 11/28/19 07:36 99 11/28/19 00:05 98 11/27/19 23:38 98 Pain Intensity Back: Pain Intensity: 2 Transfer of Care Handoff Completed per policy Notes Mental Status: alert / awake / arousable Patient Amnestic to Procedure: Yes Nausea / Vomiting: adequately controlled Pain: adequately controlled Airway Patency, RR, SpO2: stable & adequate BP & HR: stable & adequate Hydration State: stable & adequate Anesthetic Complications: no major complications apparent and Pt Satisfied with anesthetic care Notes: The patient is awake and comfortable in PACU.
[2019-11-28] MEDS ORDERED: DO NOT ADMINISTER PNEUMOCOCCAL VACCINE PRN (18:13)
[2019-11-28] MEDS ORDERED: hydrOXYzine HCl 25 MG TAB PO PRN (18:13)
[2019-11-28] MEDS ORDERED: METOCLOPRAMIDE HCL INJ 5 MG/ML 2 ML VIAL IV PRN (18:13)
[2019-11-28] MEDS ORDERED: diphenhydrAMINE Capsule 25 MG CAP PO PRN (18:13)
[2019-11-28] MEDS ORDERED: NALOXONE HCL 0.4 MG/1 ML VIAL/CARP IV PRN (18:13)
[2019-11-28] MEDS ORDERED: ONDANSETRON 4 MG OD TAB PO PRN (18:13)
[2019-11-28] MEDS ORDERED: LACTATED RINGER'S 1,000 ML IV SCH (18:13)
[2019-11-28] MEDS ORDERED: PROMETHAZINE HCL 12.5 MG in SODIUM CHLORIDE 0.9% 50 ML IV PRN (18:13)
[2019-11-28] MEDS ORDERED: HYDROmorphone INJ 0.5 MG/0.5 ML SYR IV PRN (18:13)
[2019-11-28] MEDS ORDERED: DO NOT ADMINISTER FLU VACCINE PRN (18:13)
[2019-11-28] MEDS ORDERED: MAGNESIUM HYDROXIDE SUSP 30 ML UDC PO PRN (18:13)
[2019-11-28] MEDS ORDERED: LORazepam 0.5 MG/1 ML VIAL IV PRN (18:13)
[2019-11-28] MEDS ORDERED: FAMOTIDINE 20 MG TAB PO PRN (18:13)
[2019-11-28] MEDS ORDERED: ACETAMINOPHEN 1,000 MG/100 ML VIAL IV PRN (18:13)
[2019-11-28] MEDS ORDERED: ALUMINUM/MAGNESIUM SUSP 30 ML UDC PO PRN (18:13)
[2019-11-28] MEDS ORDERED: SOD PHOSPHATE/SOD BIPHOSPHATE ENEMA 132 ML BTL PR PRN (18:13)
[2019-11-28] MEDS ORDERED: bisacodyL 10 MG SUPP PR PRN (18:13)
[2019-11-28] MEDS ORDERED: LORazepam 0.5 MG TAB PO PRN (18:13)
[2019-11-28] MEDS ORDERED: ACETAMINOPHEN 500 MG TAB PO PRN (18:13)
--- NOTE | 2019-11-28 19:50 | Fluoroscopy Report ---
[place] lumbar spine 2-3V HISTORY: 34 years-old Male L5-S2 LAMINECTOMY COMPARISON: MRI lumbar spine 11/26/2019 TECHNIQUE: One spot fluoroscopic images of the lumbar spine was obtained utilizing 4.4 seconds fluoro scopy time FINDINGS: Metallic device is noted posterior to the S1 level. Minimal spondylitic spurring. Mild posterior disc space narrowing at L5-S1. Satisfactory alignment. No acute fracture. IMPRESSION: Fluoroscopic assistance as above. Please see operative report for further details. ACT 112: Negative or not required by law. The above report was generated using voice recognition software. It may contain grammatical, syntax o r spelling errors. Electronically signed by: Kyler Ferrari M.D. 11/28/2019 7:48 PM
[2019-11-28] MEDS: MONTELUKAST SODIUM 10 MG TABLET PO SCH (20:46)
[2019-11-28] MEDS: KETOROLAC 30 MG/ML VIAL IV PRN (20:52)
[2019-11-28] MEDS ORDERED: DOCUSATE SODIUM/SENNA 50/8.6MG TAB PO SCH (21:00)
[2019-11-28] MEDS: ceFAZolin 2000MG 2,000 MG/15 ML SYR IV SCH (23:52)
[2019-11-28] MEDS: traMADol HCL 50 MG TABLET PO PRN (23:55)
[2019-11-29] MEDS: traMADol HCL 50 MG TABLET PO PRN (00:04)
[2019-11-29] MEDS: oxyCODONE HCL IR 5 MG TAB (IMMEDIATE RELEASE) PO PRN ×2 (01:16→07:41)
[2019-11-29] MEDS: KETOROLAC 30 MG/ML VIAL IV PRN (03:51)
[2019-11-29] MEDS ORDERED: POLYETHYLENE (MIRALAX) 17 GM PACK PO SCH (06:00)
[2019-11-29] MEDS: HYDROmorphone INJ 1 MG/ML SYRINGE IV PRN (06:03)
[2019-11-29] MEDS: ceFAZolin 2000MG 2,000 MG/15 ML SYR IV SCH (07:28)
[2019-11-29] MEDS: FLUTICASONE PROPIONATE NA SPR 16 GM BTL SCH (07:29)
[2019-11-29] MEDS: MULTIVITAMIN TAB PO SCH (07:29)
[2019-11-29] MEDS: CETIRIZINE HCL 10 MG TABLET PO SCH (07:29)
[2019-11-29 08:26] LABS: Hemoglobin 14.9 g/dL (14.0-18.0); Mean Corpuscular Hemoglobin 30.7 pg (25-34); Mean Corpuscular Hgb Conc 34.7 g/dL (32-36); Mean Corpuscular Volume 88.5 fL (80-100); Mean Platelet Volume 9.2 fL (7.4-10.4); Platelet Count 290 K/uL (130-400); RDW Coefficient of Variation 12.1 % (11.5-14.5); RDW Standard Deviation 38.8 fL (36.4-46.3); Red Blood Count 4.86 M/uL (4.7-6.1); White Blood Count 13.26 K/uL (4.8-10.8)
[2019-11-29 09:03] LABS: BUN Creatinine Ratio 18.3 (10-20); Calcium 9.5 mg/dl (8.5-10.1); Creatinine Clr Calc Pharmacy 113.5 ml/min; Est GFR (African American) 126.9; Est GFR (Non-African American) 109.5
--- NOTE | 2019-11-29 09:03 | Orthopedic Progress Note ---
Date of Service November 29, 2019 Assessment & Plan (1) Lumbar radiculopathy: Patient is doing quite well. He will be discharged home today. All of his questions have been answered in detail. Admission and Anticipated Discharge Date Admission Date: November 28, 2019 Supervising Physician Co-Signing Physician Notes Dr. Elías Thompson Subjective Patient is postoperative day 1 lumbar laminectomy. He is doing fantastic. Leg pain has resolved. Back pain is controlled. He is up and ambulatory. He is voiding without issue. No new events overnight. Review of Systems Review of Systems: All systems reviewed & are unremarkable except as noted in HPI & below Physical Exam Physical Exam: He is standing walking around the room. Alert and oriented x3. No acute distress. Lumbar dressing is clean dry and intact. Strength is intact bilateral lower extremities. Calves are soft nontender bilateral lower extremities. Constitutional: WD/WN, vitals as above Eyes: normal visual valdovinos by confrontation ENMT: external ear and nose normal, oropharynx normal Neck: normal visual inspection Respiratory: normal respiratory effort Cardiovascular: Extremities: normal capillary refill Chest (Breasts): Chest: normal inspection of chest Gastrointestinal (Abdomen): Inspection/Auscultation: abdomen normal to inspection Musculoskeletal: Extremities: extremities normal to inspection and strength 5/5 throughout Skin: no rashes, warm and dry Neurologic: normal touch/pain/proprioception and moves all extremities Psychiatric: A+Ox3, euthymic affect Results & Data ([facility]) Vital Signs (Past 12 Hours) Vital Signs Temp Pulse Resp BP Pulse Ox 11/29/19 07:45 36.6 C 78 19 139/77 98 11/29/19 04:02 36.8 C 87 16 144/78 H 94 11/28/19 23:40 36.6 C 90 18 130/85 96 11/28/19 21:11 36.8 C 78 16 146/69 H 92
--- NOTE | 2019-11-29 09:58 | Discharge Summary ---
Date of Service November 29, 2019 Admission HPI Per Admitting Provider 34-year-old male with past medical history significant for seasonal allergic rhinitis, mixed rhinitis, degenerative disc disease, chronic low back pain, cystic fibrosis carrier, who comes with severe back pain. The patient says he has back pain for last 10 years. A couple of weeks ago, he saw Pain Management and was given the pain shots, which made the pain worse and he was in the ER on 11/06/2019 and he was given Toradol, Decadron, and morphine. His symptoms improved and was discharged.But yesterday in the evening he again had severe pain, he could not ambulate because of severe pain and the pain was shooting from the right lower back to the right leg and he could not move the right leg because of the pain. Denies any incontinence of urine or stool. No loss of sensations. Denies any other fever, chills. Still has significant pain. Received several doses of Dilaudid in the ER. MRI scan was done, it showed probable disc bulge, potentially herniated disc medial to the exiting right S1 nerve root. No epidural fluid collection. Normal appearance of the cord and cauda equina. The patient denies any chest pain, no shortness of breath, no nausea, no abdominal pain. Normal bowel and bladder movements. No rash seen. No headache, no blurred vision, no earache, no runny nose, no sore throat, no cough. Admission Exam Per Admitting Provider GENERAL: The patient is of moderate build, not in acute distress. VITAL SIGNS: Temperature 36.8, pulse 71, respiratory rate 20, blood pressure 148/93, oxygen 99% on room air. HEENT: Pupils equal, round, reactive to light. NECK: No JVD, no neck masses. CARDIOVASCULAR: S1, S2 heard, regular rate and rhythm, no murmur, no gallop. RESPIRATORY SYSTEM: Normal AP diameter. No accessory muscle use. No wheezing, no crackles. ABDOMEN: Soft, bowel sounds present, nontender. No distention. CENTRAL NERVOUS SYSTEM: Cranial nerves II-XII grossly intact. Nonfocal. EXTREMITIES: No edema, no erythema. MUSCULOSKELETAL: Straight leg raise test positive on the right leg. painful movements of the right leg.No loss of sensation. Principal Diagnosis Chronic back pain with lumbar radiculopathy S/P Lumbar laminotomy with excision of herniated free fragment L5-S1 on the right Discharge Exam Constitutional well developed; no acute distress Eyes PERRL, conjunctivae normal, anicteric sclerae ENMT external ear and nose normal, oropharynx normal Respiratory normal respiratory effort, lungs clear to auscultation Cardiovascular RRR, no murmur, no edema Gastrointestinal (Abdomen) normal bowel sounds, soft, nontender, no hepatosplenomegaly Musculoskeletal no cyanosis or clubbing, extremities motor strength 5/5 Normal gait Clean dressing on back Neurologic PERRL, EOMI, accommodation nl, no face palsy, no dysarthria Psychiatric A+Ox3, euthymic affect Discharge Data Allergies Allergy/AdvReac Type Severity Reaction Status Date / Time No Known Allergies Allergy Verified 11/26/19 22:48 Consultations 11/26/19 23:03 ED Decision to Admit Stat 11/27/19 01:55 Consult Case Management - Discharge Planning Routine 11/27/19 07:00 Consult Orthopedic Surgery Routine Procedures Performed Operation Date: 11/28/19 07:00 Actual Procedures p Right L5-S1 Laminectomy, Partial Discectomy(Right) - Elías Thompson DO Ordered Studies 11/26/19 19:49 MR lumbar spine wo con Urgent FINDINGS: For purposes of numbering on this exam, the L5-S1 disc space is assigned to axial image 23 of 25. Alignment is anatomic. Vertebral body heights are maintained. There is no suspicious marrow replacement. Hemangioma within the L5 vertebral bodies is noted. The conus terminates at the upper L2 level. Paravertebral soft tissues are unremarkable. L1-2: The central canal and neural foramen are patent. L2-3: The central canal and neural foramen are patent. L3-4: The central canal and neural foramen are patent. L4-5: There is mild disc bulge with ligamentous hypertrophy and facet arthrosis. There is mild central canal stenosis. There is mild bilateral neural foraminal stenosis. L5-S1: There is mild disc bulge. There is a superimposed right paracentral disc protrusion that measures approximately 1 x 0.8 cm. This has mass effect upon the right S1 nerve root. There is moderate narrowing of the right neural foramen and mild narrowing of the left neural foramen. There is mild central canal narrowing. IMPRESSION: 1. Disc bulge with superimposed right central disc protrusion at L5-S1 that has mass effect upon the right S1 nerve root. Findings could be correlated with right S1 radiculopathy. 2. Mild disc bulge at L4-L5. Mild narrowing of the central canal this level. 3. No lumbar spine fracture. 11/28/19 13:00 FL fluoroscopy <1hr Routine FL lumbar spine 2-3V Routine Hospital Course (1) Back pain: (2) Lumbar radiculopathy: Chronic back pain with lumbar radiculopathy Ambulatory dysfunction from this MRI showing Disc bulge with superimposed right central disc protrusion at L5-S1 that has mass effect upon the right S1 nerve root S/P Lumbar laminotomy with excision of herniated free fragment L5-S1 on the right yesterday Appears to be doing very well today Was seen by orthopedic this morning who recommend follow up with them/PT/OT. They also sent a few doses of tramadol and oxycodone prn pain and educated patient on wound dressing Has been ambulating independently (3) Allergic rhinitis: Continue home meds Total Time Total Time Spent Total Time Spent (In Minutes): 25 Total Time Includes: Examination of the Patient, Discharge Planning and Communication With Other Providers Discharge Plan Discharge Items Patient Disposition: Home - Self-Care Reason For Visit: BACK PAIN Discharge Diagnosis: s/p lumbar laminectomy Activity: Per Instructions section Lifting: None Bathing Comment: may start showering tomorrow Exercise/Sports: None Driving/Machine Use: no driving Weightbearing: Full weightbearing Non-emergency contact: Primary Care Provider and Surgeon Call non-emergency contact if: your pain is worsening, your temperature is above 101.5, your wound has increased redness and your wound has increased drainage Follow-up/Referrals: Elías Thompson DO [Surgeon] - (PATIENT WILL CALL ON SUNDAY TO MAKE APPOINTMENT) Carlos Polo MD [Primary Care Provider] - Diet: Regular Addtl Attending Provider Instructions: ACTIVITY RECOMMENDATIONS: SELF CARE INSTRUCTIONS AFTER A LAMINECTOMY 1. No prolonged sitting (less than 30 minutes for the first 3 weeks after surgery). 2. No bending, lifting more than 5 pounds, or twisting (roll like a log when turning in bed). 3. You may shower 3 days after surgery if no drainage from wound. Thoroughly dry wound. Do not soak in the tub. 4. Please walk as much as you can for exercise. Gradually increase the distance that you walk as your endurance increases. 5. You may drive in 7-10 days if you are comfortable and no longer requiring pain medications. SPECIAL CARE INSTRUCTIONS: VERY IMPORTANT TO READ AND REVIEW A. Your surgical incision has been closed with a cosmetic suture under the skin that will dissolve in about 6 weeks. In 14 days, you can use a pair of clean scissors and cut the suture that is left outside of the skin at the ends of your incision. B. Complications are uncommon, but please contact us if you have any signs or symptoms of: 1. wound infection (fever higher than 102.5 degrees F, redness, separation of wound, drainage, or increasing pain from the incision) 2. blood clots in legs (pain, swelling, redness and warmth in legs) 3. urinary tract infection (fever higher than 102.5 degrees, burning upon urination or increased frequency of urination) 4. nerve problems (inability to walk on your toes or heels, numbness, loss of bowel or bladder control) 5. any other symptoms that concern you. C. Please call the office at if you have any concerns or questions about your operation or recovery. MANAGING PAIN AFTER SPINAL SURGERY 1. Narcotic medication is intended for short-term use and will be provided for surgical pain. Surgical pain usually lasts for a period of 4-6 weeks. Narcotic medication includes Percocet, Vicodin, Darvocet, Tylenol #3 or Lortab. 2. Longer-term pain is more appropriately treated with non-narcotic medication such as Tylenol ES. 3. Muscle spasm is not appropriately treated with narcotics. Muscle relaxers such as Soma, Flexeril or Skelaxin can be used along with Tylenol ES. 4. Remember that we all live with some "aches and pains". This is not unusual or uncommon after an injury or as we get older. 5. We will provide appropriate medication within the normal guidelines of their prescribed use. We will also be very cautious and aware of potential abuse and extended duration of patients' medication needs. 6. Please allow 2-3 days to process refills. Prescriptions will not be mailed but must be picked up at the office. FOLLOW UP VISIT: Keep your scheduled follow-up appointment. Any questions, please call the office at . Pending Studies at Discharge: No Stand-Alone Forms: My [facility], Smoking Cessation Medications and DC Order Prescriptions: New tramadol [Ultram] 50 mg tablet 50 mg PO Q8H PRN (Reason: pain) Qty: 20 RF: 0 oxycodone 5 mg tablet 5 mg PO Q6H PRN (Reason: pain) Qty: 30 RF: 0 Continued multivitamin Tablet 1 tab PO DAILY Qty: 0 RF: 0 cetirizine-pseudoephedrine [Zyrtec-D] 5-120 mg Tablet Extended Release 12 Hr 1 tab PO Q12H Qty: 0 RF: 0 ibuprofen 200 mg Tablet 400 - 600 mg PO QID PRN (Reason: Pain) Qty: 0 RF: 0 montelukast 10 mg Tablet 10 mg PO QPM Qty: 0 RF: 0 fluticasone propionate [Flonase Allergy Relief] 50 mcg/actuation S pray,Suspension 1 spray INTRANASAL BID Qty: 0 RF: 0 apple cider vinegar 300 mg Tablet 300 mg PO BID RF: 0 azelastine 137 mcg (0.1 %) aerosol,spray 1 spray INTRANASAL BID RF: 0 Discharge Orders: Discharge Order (Routine); Ordered 11/29/19 Ordered By: Kaylen Cantu Admission Data Admit Date/Time: 11/28/19 18:13 Attending Provider: Trinh Hull I. Admit Provider: Ayan Root Primary Care Provider: Carlos Polo Other Providers: Ayan Root ; Elías Thompson Other Interventions: Discharge Summary Assessment (RN) Last Done: 11/29/19 09:11
== END 2019-11-29 09:52 | disposition home or self-care (01) | DRG 520 ==
LOC: 3W 19:24 → ED 19:24 → 3W 11-27 01:36